=== PATIENT | female | born 2000 | race Caucasian/White ===

== ENCOUNTER → 2021-11-22 | Outpatient (REF) | payer BC | LOC: M SFHCDERM 19:12 | PROVIDERS: ATTEND Nurse Practitioner Family | DX: D22.39 Melanocytic nevi of other parts of face (principal); D22.5 Melanocytic nevi of trunk ==

== ENCOUNTER → 2021-12-27 | Outpatient (REF) | payer BC | LOC: M SFHCDERM 16:52 | PROVIDERS: ATTEND Nurse Practitioner Family | DX: D22.5 Melanocytic nevi of trunk (principal) ==

== ENCOUNTER → 2022-03-03 | Outpatient (REF) | payer BC | LOC: M LAB REF 16:16 | PROVIDERS: ATTEND Plastic Surgery Surgery of the Hand | DX: D22.39 Melanocytic nevi of other parts of face (principal) ==